=== PATIENT | female | born 1985 | race Two or more races ===

== ENCOUNTER 2024-01-14 02:02 | Emergency (ER) | payer OTHER ==
[~2024-01-14] VITALS: Ht 152.4 cm; Wt 58.0 kg
[2024-01-14] MEDS ORDERED: IBUP1TAB5 PO (03:27)
[2024-01-14] MEDS: IBUPROFEN 600 MG TAB PO ONE (03:34)
[2024-01-14 03:41] VITALS: BP 107/67; PULSE 81; RESP 16; TEMP 98.2; O2SAT 98
== END 2024-01-14 03:44 | disposition home or self-care (01) ==
LOC: ER 02:02
DX: S93.402A Sprain of unspecified ligament of left ankle, initial encounter (principal); Z88.6 Allergy status to analgesic agent; W18.09XA Striking against other object with subsequent fall, initial encounter; Y93.89 Activity, other specified; Y92.89 Other specified places as the place of occurrence of the external cause; Y99.8 Other external cause status
CPT/HCPCS: 29515; 73610